=== PATIENT | male | born 1995 | race Caucasian/White ===

== ENCOUNTER 2019-12-02 14:47 | Emergency (ER) | payer OTHER ==
[~2019-12-02] VITALS: Ht 185.4 cm; Wt 88.2 kg
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
[2019-12-02] MEDS ORDERED: CLEO300C2 PO (16:37)
[2019-12-02] MEDS ORDERED: PERC5TAB12 PO (16:37)
[2019-12-02 17:00] VITALS: BP 150/88
== END 2019-12-02 17:00 | disposition home or self-care (01) ==
LOC: M ED 14:47
DX: S02.601A Fracture of unspecified part of body of right mandible, initial encounter for closed fracture (principal); Y04.0XXA Assault by unarmed brawl or fight, initial encounter; Y92.099 Unspecified place in other non-institutional residence as the place of occurrence of the external cause; Y93.9 Activity, unspecified; Y99.9 Unspecified external cause status

== ENCOUNTER 2020-09-05 13:20 | Emergency (ER) | payer OTHER ==
[~2020-09-05] VITALS: Ht 185.4 cm; Wt 97.3 kg
[~2020-09-05 13:20] MED LIST: CLEO300C2 PO; PERC5TAB12 PO
[2020-09-05] MEDS ORDERED: KETOROLAC TROMETHAMINE 10 MG TAB PO ONE (16:25)
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
[2020-09-05] MEDS ORDERED: METH-1164 PO (17:27)
[2020-09-05] MEDS ORDERED: KETO10TAB PO (17:27)
[2020-09-05] MEDS ORDERED: methocarbamoL 500 MG TAB PO ONE (17:35)
[2020-09-05 17:40] VITALS: BP 128/85
== END 2020-09-05 17:42 | disposition home or self-care (01) ==
LOC: M ED 13:20
DX: S13.4XXA Sprain of ligaments of cervical spine, initial encounter (principal); S16.1XXA Strain of muscle, fascia and tendon at neck level, initial encounter; X58.XXXA Exposure to other specified factors, initial encounter; Y92.84 Military training ground as the place of occurrence of the external cause; Y93.89 Activity, other specified; Y99.1 Military activity